=== PATIENT | female | born 1955 | race Caucasian/White ===

== ENCOUNTER 2017-02-13 14:12 | Inpatient (IN) | payer MEDICARE ==
[~2017-02-13] VITALS: Ht 165.1 cm; Wt 67.1 kg
--- NOTE | 2017-02-13 14:12 | NUR ---
BIB [facility] FROM HOME, RIGHT KNEE PAIN,THINKS THAT HER PATELLA IS DISLOCATED . NO TRAUMA MORPHIEN 8 MG GIVEN IN FIELD
[2017-02-13] MEDS ORDERED: EZET10TA PO (14:19)
[2017-02-13] MEDS ORDERED: SIMV10TA6 PO (14:19)
[2017-02-13] MEDS ORDERED: ONDANSETRON HCL/PF 4 MG/2 ML VIAL ONE (15:28)
[2017-02-13] MEDS ORDERED: MORPHINE SULFATE INJ 10 MG/ML DISP.SYRIN ONE (15:29)
[2017-02-13] MEDS ORDERED: MORPHINE SULFATE INJ 2 MG/ML DISP.SYRIN IV ONE (15:30)
[2017-02-13] MEDS ORDERED: ONDANSETRON HCL/PF 4 MG/2 ML VIAL IVP ONE (15:30)
[2017-02-13 15:38] LABS: BASOPHILS # (AUTO) 0.1 /CMM (0.0-0.2); BASOPHILS % (AUTO) 1.2 % (0.0-2.0); EOSINOPHILS % (AUTO) 0.6 % (0.0-6.0); HEMATOCRIT 42 % (33-45); HEMOGLOBIN 13.8 g/dL (11.5-14.8); LYMPHOCYTES # (AUTO) 1.3 /CMM (0.8-4.8); LYMPHOCYTES % (AUTO) 23.1 % (20.0-44.0); MEAN CORPUSCULAR HEMOGLOBIN 29 PG (26.0-33.0); MEAN CORPUSCULAR HGB CONC 33 g/dl (31.0-36.0); MEAN CORPUSCULAR VOLUME 89 fL (82-100); MONOCYTES # (AUTO) 0.3 /CMM (0.1-1.30); MONOCYTES % (AUTO) 5.7 % (2.0-12.0); NEUTROPHILS # (AUTO) 3.8 /CMM (1.8-8.9); NEUTROPHILS % (AUTO) 69.4 % (43.0-81.0); PLATELET COUNT (AUTO) 266 /CMM (150-450); RDW COEFFICIENT OF VARIATION 12.7 (11.5-15.0); RED BLOOD CELL COUNT(AUTO) 4.74 MIL/uL (4.0-5.2); WHITE BLOOD COUNT (AUTO) 5.4 K/uL (4.3-11.0)
[2017-02-13 15:49] LABS: CALCIUM, SERUM 8.9 mg/dL (8.5-10.1); CREATININE 0.6 mg/dL (0.6-1.3); POTASSIUM 4.2 mmol/L (3.5-5.1)
[2017-02-13 15:58] LABS: ALBUMIN 3.8 g/dL (3.4-5.0); BILIRUBIN,DIRECT 0.1 mg/dL (0.0-0.2); BILIRUBIN,TOTAL 0.3 mg/dL (0.2-1.0); TOTAL PROTEIN, SERUM 7.4 g/dL (6.4-8.2)
--- NOTE | 2017-02-13 16:06 | NUR ---
DR TEMPLETON SPEAKING WITH YAMEL STEEN NP REGARDING PATIENT'S ADMISSION
[2017-02-13] MEDS ORDERED: IV NS 0.9% 1,000 ML IV PRN (16:22)
[2017-02-13] MEDS ORDERED: ACETAMINOPHEN 325 MG TABLET PO PRN (16:30)
[2017-02-13] MEDS ORDERED: MAGNESIUM HYDROXIDE 30 ML UDC PO PRN (16:30)
[2017-02-13] MEDS ORDERED: MAG HYDROX/AL HYDROX/SIMETH 30 ML UDC PO PRN (16:30)
[2017-02-13] MEDS ORDERED: ONDANSETRON HCL/PF 4 MG/2 ML VIAL IVP PRN (16:30)
[2017-02-13 17:00] VITALS: BP 125/77
--- NOTE | 2017-02-13 17:15 | NUR ---
MS ADMIT FROM ER AFTER REPORT RECEIVED FROM HU MARTINEZ. PATIENT ORIENTED TO PRIMARY RN, UNIT, ROOM. BED, AND UNIT POLICIES REGARDING PATIENT CARE AND VISITING HOURS. PATIENT WEIGHED BY BED SCALE AND ENCOURAGED TO CALL IF THEY NEED SOMETHING. ALL QUESTIONS AND CONCERNS ADDRESSED, PATIENT VERBALIZED UNDERSTANDING.
[2017-02-13] MEDS: ENOXAPARIN SODIUM 40 MG/0.4 ML DISP.SYRIN SQ SCH (17:31)
--- NOTE | 2017-02-13 18:56 | NUR ---
CHANGE OF SHIFT REPORT PT RESTING COMFORTABLY IN BED WITH EYES CLOSED. NO S/S OR C/O PAIN OR DISTRESS NOTED. SIDE RAILS UP X2, CALL LIGHT LEFT WITHIN REACH. PT KEPT CLEAN, DRY, AND COMFORTABLE. NO SIGNIFICANT CHANGES SINCE ADMISSION. WILL GIVE REPORT TO COLLETTE MARTINEZ.
--- NOTE | 2017-02-13 19:30 | NUR ---
RN OPEN NOTES RECEIVED PATIENT AWAKE IN BED WITH FAMILY AT BEDSIDE. A/O X4. NO SIGNS OF DISTRESS OR DISCOMFORT. BREATHING EVEN AND UNLABORED. PAIN 4/10 IN R KNEE AND TOLERABLE. IV ACCESS IN LFA WITH NS INFUSING, PATENT AND INTACT, NO SIGNS OF REDNESS OR INFILTRATION. BED IN LOW LOCKED POSITION WITH SIDE RAILS X2. CALL LIGHT WITHIN REACH. WILL CONTINUE TO MONITOR.
[2017-02-13 20:00] VITALS: BP 111/62
[2017-02-13] MEDS: ZOLPIDEM TARTRATE 5 MG TABLET PO PRN (21:47)
--- NOTE | 2017-02-14 06:41 | NUR ---
RN CLOSING NOTES PATIENT RESTING IN BED, EASILY AROUSABLE. A/O X4. NO SIGNS OF DISTRESS OR DISCOMFORT. BREATHING EVEN AND UNLABORED. IV ACCESS IN RFA WITH NS INFUSING, PATENT AND INTACT, NO SIGNS OF REDNESS OR INFILTRATION. ALL NEEDS MET. NO SIGNIFICANT CHANGES THROUGH THE NIGHT. BED IN LOW LOCKED POSITION WITH SIDE RAILS X2. CALL LIGHT WITHIN REACH. WILL ENDORSE TO AM SHIFT FOR [facility].
[2017-02-14 07:15] LABS: BASOPHILS % (AUTO) 0.5 % (0.0-2.0); EOSINOPHILS # (AUTO) 0.1 /CMM (0.0-0.7); HEMATOCRIT 35 % (33-45); HEMOGLOBIN 11.6 g/dL (11.5-14.8); LYMPHOCYTES # (AUTO) 3.1 /CMM (0.8-4.8); MEAN CORPUSCULAR HEMOGLOBIN 30 PG (26.0-33.0); MEAN CORPUSCULAR HGB CONC 33 g/dl (31.0-36.0); MEAN CORPUSCULAR VOLUME 91 fL (82-100); MONOCYTES # (AUTO) 0.5 /CMM (0.1-1.30); MONOCYTES % (AUTO) 7.4 % (2.0-12.0); NEUTROPHILS # (AUTO) 2.7 /CMM (1.8-8.9); NEUTROPHILS % (AUTO) 42.1 % (43.0-81.0); PLATELET COUNT (AUTO) 214 /CMM (150-450); RDW COEFFICIENT OF VARIATION 13.8 (11.5-15.0); RED BLOOD CELL COUNT(AUTO) 3.86 MIL/uL (4.0-5.2); WHITE BLOOD COUNT (AUTO) 6.3 K/uL (4.3-11.0)
[2017-02-14 07:21] LABS: CALCIUM, SERUM 8.3 mg/dL (8.5-10.1); CREATININE 0.7 mg/dL (0.6-1.3); MAGNESIUM 1.8 mg/dL (1.8-2.4); PHOSPHORUS 4.6 mg/dL (2.5-4.9); POTASSIUM 4.2 mmol/L (3.5-5.1)
--- NOTE | 2017-02-14 07:25 | NUR ---
RN INITIAL NOTES REPORT RECEIVED AT THE BEDSIDE. PATIENT IS SLEEPING. NO SOB OR DISTRESS NOTED AT THIS TIME. PATIENT DOES NOT APPEAR TO BE IN PAIN, NO FACIAL GRIMACE NOTED. BED IN A LOW POSITION, BED ALARM ON, CALL LIGHT WITHIN PATIENT REACH. WILL CONTINUE TO MONITOR.
[2017-02-14 07:26] LABS: THYROID STIMULATING HORMONE 1.238 uIU/mL (0.358-3.74)
[2017-02-14] MEDS: MORPHINE SULFATE INJ 2 MG/ML DISP.SYRIN IV PRN ×2 (07:48→15:31)
[2017-02-14 08:00] VITALS: BP 97/57
[2017-02-14] MEDS: FAMOTIDINE (20 MG) 20 MG TABLET PO SCH (08:26)
[2017-02-14 08:30] VITALS: BP 97/57
--- NOTE | 2017-02-14 10:40 | NUR ---
RN NOTES CALLED LYRIC PATIENT IS HAVING BREAKTHROUGH PAIN BETWEEN MORPHINE DOSES. CHEMICAL WASTE MANAGEMENT TECHNICIAN ORDERED NORCO 5MG Q4H. ORDERS PLACED.
[2017-02-14] MEDS: HYDROCODONE/APAP 5/325MG 1 EACH TABLET PO PRN ×3 (10:47→21:29)
[2017-02-14 16:00] VITALS: BP 95/64
--- NOTE | 2017-02-14 18:48 | NUR ---
RN CLOSING NOTES PATIENT CURRENTLY IN MRI. NO CHANGE IN PATIENT CONDITION THROUGH SHIFT.
--- NOTE | 2017-02-14 19:55 | NUR ---
MS RN OPENING NOTES PATIENT RECEIVED LAYING IN BED ON HER BACK AFTER SHE CAME BACK FROM HER MRI. A & O X 4. NO SOB, NO ACUTE DISTRESS NOTED. HAS C/O PAIN TO RIGHT KNEE, PRN NORCO WAS GIVEN 2 & 1/2 HRS AGO, REFUSED TO TAKE MORPHINE AT THIS TIME, WOULD LIKE TO WAIT & TAKE ANOTHER NORCO WHEN ITS DUE. IV ACCESS TO LEFT WRIST WITH NS RUNNING AT 75 ML/HR, INTACT & PATENT. TAKES P O INTAKE, WILL BE NPO POST MIDNIGHT. ABLE TO AMBULATE WITH WALKER WITH STANDBY ASSISTANCE. BED IN LOW LOCKED POSITION. CALL LIGHT WITHIN REACH. WILL CONTINUE TO MONITOR CLOSELY.
[2017-02-14 20:00] VITALS: BP 109/61
[2017-02-14] MEDS ORDERED: MORPHINE SULFATE INJ 10 MG/ML DISP.SYRIN IV PRN (20:30)
--- NOTE | 2017-02-14 21:29 | NUR ---
PRN NORCO GIVEN PATIENT VERBALIZED C/O RIGHT KNEE PAIN 7/10 AT SCALE. PRN NORCO GIVEN. WILL REASSESS INDICATED. ASSISTED TO THE BR WITH THE WALKER & BACK TO BED. MADE COMFORTABLE IN BED. MONITORING CLOSELY.
--- NOTE | 2017-02-14 22:07 | NUR ---
RN NOTES: RELAYED RESULT OF KNEE MRI TO BEN MATTSON, PER BEN, "NO SURGERY, GOING TO F/U OUTPATIENT,, CLEAR FOR DC". NO NEED TO BE NPO POST MIDNIGHT
--- NOTE | 2017-02-14 22:15 | NUR ---
RN NOTES: MD CURRENTLY IN THE UNIT, INFORMED THAT PT'S REFUSING FOR IV REINSERTION, DESPITE EDUCATING THE PT, TRIED REINSERTION TWICE BUT VEINS KEPT BLOWING, BUN CREA WNL, ALSO PT TOLERATING PO INTAKE WELL, AND BEEN DRINKING FLUIDS, ALSO INFORMED PER ORTHO/BEN, PT IS CLEARED FOR DISCHARGE, WILL F/U OUTPT AND NO NEED FOR SURGERY, PER DR CALIXTO "OKAY FOR PT NOT TO HAVE IV ACCESS".
[2017-02-14] MEDS: ENOXAPARIN SODIUM 40 MG/0.4 ML DISP.SYRIN SQ SCH (22:22)
[2017-02-14] MEDS: ZOLPIDEM TARTRATE 5 MG TABLET PO PRN (22:31)
--- NOTE | 2017-02-15 03:00 | NUR ---
MS RN NOTES PATIENT IS SLEEPING COMFORTABLY. NO S/S OF PAIN OR C/O PAIN NOTED AT THIS TIME. OBSERVING CLOSELY.
[2017-02-15] MEDS: HYDROCODONE/APAP 5/325MG 1 EACH TABLET PO PRN ×2 (04:54→09:32)
--- NOTE | 2017-02-15 04:55 | NUR ---
PRN NORCO GIVEN PATIENT VERBALIZED PAIN TOO HER BACK & REQUESTED TO TAKE ONLY NORCO. PRN NORCO GIVEN. WILL REASSESS FOR PAIN.
--- NOTE | 2017-02-15 06:01 | NUR ---
RN NOTES: PT REFUSED FOR BLOOD DRAW, STATED SHE'S GOING HOME TODAY SO NO NEED FOR BLOOD DRAW, EXPLAINED TO THE PT THAT SHE IS POSSIBLY GOING HOME TODAY SHE IS CLEARED FOR DC BY ORTHO HOWEVER IT WOULD BE BEST TO CHECK HER LABS PRIOR TO HER GOING HOME, HOWEVER PT REFUSED. INFORMED CLIENT INSIGHTS CONSULTANT TO TRY AGAIN AFTER BREAKFAST
--- NOTE | 2017-02-15 06:48 | NUR ---
MS RN CLOSING NOTES PATIENT SLEPT INTERMITTENTLY AT NIGHT. PAIN MANAGEMENT DONE BY GIVING PRN PAIN MEDS.ALL NEEDS ATTENDED TO & MET. POSSIBLY DC HOME TODAY. NO SURGERY SCHEDULED BY MD. TAKING GOOD PO FLUIDS & TOLERATING WELL. NO IV ACCESS. MD AWARE. BED IN LOW LOCKED POSITION. CALL LIGHT WITHIN REACH. WILL ENDORSE TO AM SHIFT.
--- NOTE | 2017-02-15 07:15 | NUR ---
RN OPEN NOTES RECEIVED REPORT FROM OPERATOR ENGINEER NURSE. WILL CONTINUE TO ASSESS AND MONITOR PATIENT THROUGH OUT MY SHIFT
[2017-02-15 08:00] VITALS: BP 97/67
[2017-02-15] MEDS: FAMOTIDINE (20 MG) 20 MG TABLET PO SCH (08:21)
[2017-02-15] MEDS ORDERED: FLU VACC QS 2017-18(36MOS+)/PF 0.5 ML DISP.SYRIN IM ONE (10:00)
[2017-02-15] MEDS ORDERED: HYDR-552 PO (11:04)
--- NOTE | 2017-02-15 11:19 | NUR ---
PICTURE FRAMES INSPECTOR NOTE PATIENT DISCHARGE ORDER RECEIVED AND CARRIED OUT. PATIENT IS LEAVING IN A STABLE CONDITION. NO SIGNS AND SYMPTOMS OF DISTRESS OR PAIN. NO NEW CONCERNS IDENTIFIED. ALL DISCHARGE INFORMATION AND EDUCATION WAS GIVEN TO PATIENT AND , BOTH VERBALIZED UNDERSTANDING. ALL PERSONAL BELONGING WITH PATIENT AT TIME OF DISCHARGE. PATIENT ADVISED TO FOLLOW UP WITH DR RODRIGUES'S OFFICE WITH IN 1-2 WEEKS AT HIS OFFICE. MED NEW PRESCRIPTION WITH PATIENT AT TIME OF DISCHARGE. BELONGING FORM AND DISCHARGE INSTRUCTION WITH PATIENT AT TIME OF DISCHARGE. NO IV SITE. SKIN IS INTACT. ID BAND REMOVED. PATIENT WENT HOME VIA A PRIVATE CAR AND HER .
== END 2017-02-15 11:19 | disposition home or self-care (01) | DRG 563 ==
LOC: ER 14:16 → MEDSG2 16:09
PROVIDERS: ADMIT Nurse Practitioner Acute Care; ATTEND Nurse Practitioner Acute Care
DX: S83.251A Bucket-handle tear of lateral meniscus, current injury, right knee, initial encounter (principal); E78.5 Hyperlipidemia, unspecified; X58.XXXA Exposure to other specified factors, initial encounter; Y93.9 Activity, unspecified; Y92.009 Unspecified place in unspecified non-institutional (private) residence as the place of occurrence of the external cause
CPT/HCPCS: 36415; 73562; 73700-TC; 73721-TC; 80048-TC; 80061-TC; 80076-TC; 83735-TC; 84100-TC; 84443-TC; 85025-TC; 93307-TC; J1650; J2270; J2405; J7030; Q2036; Z7610